=== PATIENT | female | born 1975 | race Two or more races ===

== ENCOUNTER 2024-02-04 17:45 | Emergency (ER) | payer MEDICAID ==
[~2024-02-04] VITALS: Ht 157.5 cm; Wt 83.9 kg
[2024-02-04 18:54] VITALS: BP 136/95; PULSE 82; RESP 17; TEMP 99; O2SAT 98
[2024-02-04] MEDS: HYDROcodone-ACET 5/325MG TAB PO ONE (20:02)
[2024-02-04] MEDS ORDERED: HYDR-4902 PO (21:30)
== END 2024-02-04 22:45 | disposition home or self-care (01) ==
LOC: ER 17:45
DX: M25.561 Pain in right knee (principal); G89.29 Other chronic pain
CPT/HCPCS: 29505; 73562; 93971

== ENCOUNTER → 2024-04-06 | Emergency (ER) | payer MEDICAID ==
[~2024-04-06] VITALS: Ht 157.5 cm; Wt 83.7 kg
[~2024-04-06] MED LIST: HYDR-4902 PO
[2024-04-06 12:30] LABS: Basophils # (auto) 0.1 10 ^3/uL (0-0.2); Eosinophils # (auto) 0.2 10 ^3/uL (0-0.8); Hemoglobin 14.5 g/dL (12.2-16.2); Lymphocytes % (auto) 30.8 % (10.0-50.0); Nucleated Red Blood Cells % 0.1 %
[2024-04-06 12:31] LABS: Eosinophils % (auto) 1.9 % (0.0-7.0); Hematocrit 44.3 % (36.0-46.0); Lymphocytes # (auto) 2.5 10 ^3/uL (0.4-5.4); Mean Corpuscular Hemoglobin 26.5 pg (28.0-32.0); Mean Corpuscular Hgb Conc. 32.7 g/dL (32.0-36.0); Mean Corpuscular Volume 81.2 fL (80.0-100.0); Monocytes # (auto) 0.8 10 ^3/uL (0-1.3); Monocytes % (auto) 9.8 % (0.0-12.0); Neutrophils # (auto) 4.6 10 ^3/uL (1.6-8.6); Neutrophils % (auto) 56.5 % (37.0-80.0); Red Blood Cells 5.46 10^6/uL (4.0-5.20); Red Cell Distribution Width 15.4 % (11.8-14.3); White Blood Cell 8.2 10^3/uL (4.4-10.8)
[2024-04-06 12:45] LABS: Alanine Aminotransferase 52 U/L (7-40); Albumin 4.5 g/dL (3.2-4.8); Alkaline Phosphatase 129 U/L (46-116); Anion Gap 8 (5-15); Aspartate Aminotransferase 21 U/L (13-40); BUN/Creatinine Ratio 10.5 (10.0-20.0); Blood Urea Nitrogen 8 mg/dL (9-23); Calcium 10.1 mg/dL (8.5-10.1); Carbon Dioxide 22 mmol/L (20-30); Chloride 108 mmol/L (98-107); Glucose 92 mg/dL (74-106); Sodium 138 mmol/L (136-145)
[2024-04-06 12:46] LABS: Bilirubin, Total 0.5 mg/dL (0.2-1.0); Total Protein 7.4 g/dL (5.7-8.2)
[2024-04-06] MEDS: KETOROLAC TROMETH 30 MG/ML 1ML VIAL IV ONE (12:50)
[2024-04-06] MEDS: MORPHINE SULFATE 4 MG/ML SYR/VIAL IV ONE (12:52)
[2024-04-06] MEDS: IOHEXOL 350 MG/ML 100ML IJ ONE (13:17)
[2024-04-06 15:29] VITALS: BP 129/89; PULSE 73; RESP 20; TEMP 97.5; O2SAT 100
== END | disposition home or self-care (01) ==
LOC: ER 11:27
DX: S86.911A Strain of unspecified muscle(s) and tendon(s) at lower leg level, right leg, initial encounter (principal); X58.XXXA Exposure to other specified factors, initial encounter; Y93.89 Activity, other specified; Y92.89 Other specified places as the place of occurrence of the external cause; Y99.8 Other external cause status
CPT/HCPCS: 36415; 71275; 80053; 84484; 85025; 93971; 96374; 96375; 99285; J1885; J2270; Q9967